=== PATIENT | female | born 1960 | race African-American/Black ===

== ENCOUNTER → 2016-10-11 | Emergency (ER) | payer MEDICARE, OTHER ==
[~2016-10-11] VITALS: Ht 170.2 cm; Wt 9.2 kg
[~2016-10-11] MED LIST: ALPR1TAB2 PO; BUPR100T4 PO; FAMOTIDINE (20 MG) 20 MG TABLET ONE; FAMOTIDINE (20 MG) 20 MG TABLET PO ONE; diphenhydrAMINE HCL 25 MG CAPSULE ONE; diphenhydrAMINE HCL 25 MG CAPSULE PO ONE; predniSONE 20 MG TABLET ONE; predniSONE 20 MG TABLET PO ONE
[2016-10-11 16:37] VITALS: BP 118/79
== END | disposition home or self-care (01) ==
LOC: ER 16:36
DX: T78.40XA Allergy, unspecified, initial encounter (principal); H57.8 Other specified disorders of eye and adnexa; I10 Essential (primary) hypertension; F41.9 Anxiety disorder, unspecified; F32.9 Major depressive disorder, single episode, unspecified; G47.00 Insomnia, unspecified; Z90.710 Acquired absence of both cervix and uterus; Z98.890 Other specified postprocedural states; Z98.84 Bariatric surgery status; X58.XXXA Exposure to other specified factors, initial encounter
CPT/HCPCS: 99284; A4606; J7512; Q0163; A6402; Z7610

== ENCOUNTER 2017-07-29 05:02 | Day surgery (SDC) | payer MEDICARE, OTHER ==
[~2017-07-29 05:02] MED LIST changes: -FAMOTIDINE (20 MG) 20 MG TABLET ONE; -FAMOTIDINE (20 MG) 20 MG TABLET PO ONE; -diphenhydrAMINE HCL 25 MG CAPSULE ONE; -diphenhydrAMINE HCL 25 MG CAPSULE PO ONE; -predniSONE 20 MG TABLET ONE; -predniSONE 20 MG TABLET PO ONE
[2017-07-29] MEDS ORDERED: CEFAZOLIN SODIUM/DEXTROSE,ISO 50 ML IV ONE (05:31)
[2017-07-29] MEDS ORDERED: LIDOCAINE 0.5% HCL 50 ML VIAL ONE (06:17)
[2017-07-29] MEDS ORDERED: ANESTHESIA TRAY IN PYXIS 1 EA TRAY MC ONE (06:21)
[2017-07-29] MEDS ORDERED: FENTANYL PF 100MCG/2ML AMPUL ONE ×2 (06:40→08:02)
[2017-07-29] MEDS ORDERED: MIDAZOLAM HCL 2 MG/2ML VIAL ONE (06:40)
[2017-07-29] MEDS ORDERED: EPINEPHRINE (1:1000) MDV 30 MG/30ML VIAL ONE (07:08)
[2017-07-29] MEDS ORDERED: HYDROMORPHONE 2 MG/1 ML SDV ONE (07:38)
[2017-07-29] MEDS ORDERED: HYDROCODONE/APAP 5/325MG 1 EACH TABLET ONE (08:57)
== END 2017-07-29 09:30 | disposition home or self-care (01) ==
LOC: DS 05:02
PROVIDERS: ATTEND Specialist
DX: S46.011A Strain of muscle(s) and tendon(s) of the rotator cuff of right shoulder, initial encounter (principal); M24.111 Other articular cartilage disorders, right shoulder; M75.41 Impingement syndrome of right shoulder; M65.811 Other synovitis and tenosynovitis, right shoulder; E66.3 Overweight; I10 Essential (primary) hypertension; X58.XXXA Exposure to other specified factors, initial encounter; Y93.9 Activity, unspecified; Y92.89 Other specified places as the place of occurrence of the external cause; Y99.9 Unspecified external cause status
CPT/HCPCS: 23410; 29820; 29822; 29826; 88304; 88305; 88311; A4217; A6253; C1713; J0171; J0690 ×2; J1100; J1170; J2250; J2405; J2704; J3010 ×2; J3490 ×2

== ENCOUNTER 2017-09-24 15:54 | Emergency (ER) | payer MEDICARE, OTHER ==
[~2017-09-24] VITALS: Ht 170.2 cm; Wt 103.0 kg
[2017-09-24 16:00] VITALS: BP 122/72
== END 2017-09-24 16:36 | disposition home or self-care (01) ==
LOC: ER 16:01
DX: L30.9 Dermatitis, unspecified (principal); F32.9 Major depressive disorder, single episode, unspecified; F10.10 Alcohol abuse, uncomplicated; I10 Essential (primary) hypertension; Z98.84 Bariatric surgery status
CPT/HCPCS: 99283; A4606; Z7610

== ENCOUNTER 2017-12-12 20:16 | Emergency (ER) | payer MEDICARE, OTHER ==
[~2017-12-12] VITALS: Ht 160 cm; Wt 113.4 kg
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
--- NOTE | 2017-12-12 20:30 | NUR ---
POLICE AT BEDSIDE
--- NOTE | 2017-12-12 20:35 | NUR ---
ER MD ABREU AT BEDSIDE
--- NOTE | 2017-12-12 20:42 | NUR ---
QUILL FIXER AT BEDSIDE
--- NOTE | 2017-12-12 20:50 | NUR ---
LABORER HOISTING LEFT
[2017-12-12] MEDS ORDERED: IBUPROFEN 600 MG TABLET PO ONE (21:41)
[2017-12-12] MEDS: IBUPROFEN 600 MG TABLET PO ONE (21:43)
[2017-12-12] MEDS ORDERED: HYDROCODONE/APAP 5/325MG 1 EACH TABLET ONE (21:49)
[2017-12-12] MEDS: HYDROCODONE/APAP 5/325MG 1 EACH TABLET PO ONE (21:51)
[2017-12-12 21:55] VITALS: BP 108/65
== END 2017-12-12 21:56 | disposition home or self-care (01) ==
LOC: ER 20:18
DX: S80.12XA Contusion of left lower leg, initial encounter (principal); F32.9 Major depressive disorder, single episode, unspecified; I10 Essential (primary) hypertension; F10.10 Alcohol abuse, uncomplicated; Z86.711 Personal history of pulmonary embolism; Z98.84 Bariatric surgery status; V02.99XA Pedestrian with other conveyance injured in collision with two- or three-wheeled motor vehicle, unspecified whether traffic or nontraffic accident, initial encounter; Y93.89 Activity, other specified; Y92.89 Other specified places as the place of occurrence of the external cause; Y99.8 Other external cause status
CPT/HCPCS: 73590; 99284; A4606; Z7610